=== PATIENT | female | born 1990 | race Caucasian/White ===

== ENCOUNTER 2021-07-27 09:14 | Emergency (ER) | payer BC ==
[~2021-07-27] VITALS: Ht 180.3 cm; Wt 70.3 kg
[2021-07-27 14:23] VITALS: BP 108/70
== END 2021-07-27 14:26 | disposition home or self-care (01) ==
LOC: ER 09:14
DX: S43.004A Unspecified dislocation of right shoulder joint, initial encounter (principal); V19.9XXA Pedal cyclist (driver) (passenger) injured in unspecified traffic accident, initial encounter; Y93.89 Activity, other specified; Y92.89 Other specified places as the place of occurrence of the external cause; Y99.8 Other external cause status